=== PATIENT | male | born 1965 | race African-American/Black ===

== ENCOUNTER 2023-02-17 21:46 | Emergency (ER) | payer OTHER ==
[~2023-02-17] VITALS: Ht 180.3 cm; Wt 104.0 kg
[~2023-02-17 21:46] MED LIST: CIPRO500 MG OR; HYDROCO/APAP1 TA1 OR; IBUPROFEN800 MG OR; NEXIUM40 M1 OR
[2023-02-17] MEDS ORDERED: NEURONTIN800 MG PO (22:11)
[2023-02-17] MEDS ORDERED: LORTAB 5/3255 MG PO (22:11)
[2023-02-17] MEDS ORDERED: COZAAR25 MG PO (22:11)
[2023-02-17] MEDS ORDERED: CRESTOR5 MG PO (22:11)
[2023-02-17 22:29] LABS: BASO% 0.6 % (0-3); EOS% 1.9 % (0-8); HEMATOCRIT 43.8 % (39.0-50.0); HEMOGLOBIN 13.4 g/dl (14.0-18.0); LYMPH% 54.4 % (15-41); MEAN CELL VOLUME 71.8 fL CALC (80.0-100.0); MEAN CORPUSCULAR HGB CONC 30.6 g/dL CAL (32.0-36.0); MONO% 8.8 % (2-13); NEUT# 1.64 thou/uL (1.82-7.42); NEUT% 34.3 % (42-76); RED BLOOD COUNT 6.1 mill/uL (4.70-6.10); RED CELL DISTRI WIDTH 16.3 % (11.5-15.5)
[2023-02-17 22:41] LABS: ALBUMIN 4.3 g/dL (3.2-5.0); ALKALINE PHOSPHATASE 71 u/l (38-126); ANION GAP 12 (6-22 (CALC)); BILIRUBIN, TOTAL 0.7 mg/dL (0.2-1.3); BUN 10 mg/dL (9-20); BUN/CREATININE RATIO 8 (12-20 (CALC)); CARBON DIOXIDE 28 mmol/l (22-30); CHLORIDE 102 mmol/l (95-108); CREATININE 1.3 mg/dL (0.7-1.3); GFR FOR AFR.AMER. > 60 ML/MIN (>=60 (CALC)); GFR OTHER RACES 57 ML/MIN (>=60 (CALC)); POTASSIUM 4.3 mmol/l (3.5-5.1); SGOT/AST 44 u/l (17-59); SODIUM 137 mmol/l (137-146); TOTAL PROTEIN 6.9 g/dL (6.3-8.2)
[2023-02-17 22:51] VITALS: BP 156/90
== END 2023-02-17 22:57 | disposition home or self-care (01) | DRG 948 ==
LOC: ED 21:46
PROVIDERS: Emergency Medicine
DX: R79.9 Abnormal finding of blood chemistry, unspecified (principal); I10 Essential (primary) hypertension